=== PATIENT | male | born 1975 | race African-American/Black ===

== ENCOUNTER 2017-09-05 22:14 | Emergency (ER) | payer SELFPAY ==
--- NOTE | 2017-09-05 23:49 | RAD ---
LEFT HAND THREE VIEWS: 09/05/17 HISTORY: Injured hand at work. Arthritic changes of the first carpometacarpal joint space are seen. There is some deformity at the DIP joint of the little finger. There is no signs of any acute fracture or dislocation. IMPRESSION: No evidence of acute injury. POS: [facility]
[2017-09-06] MEDS ORDERED: Ibuprofen 800 MG TAB ONE (03:01)
== END 2017-09-06 03:03 | disposition home or self-care (01) ==
LOC: ERS 22:14
DX: S63.502A Unspecified sprain of left wrist, initial encounter (principal); M19.90 Unspecified osteoarthritis, unspecified site; E11.9 Type 2 diabetes mellitus without complications; I10 Essential (primary) hypertension; J45.909 Unspecified asthma, uncomplicated; F17.210 Nicotine dependence, cigarettes, uncomplicated; Z79.84 Long term (current) use of oral hypoglycemic drugs; Z79.899 Other long term (current) drug therapy; X50.1XXA Overexertion from prolonged static or awkward postures, initial encounter; Y99.0 Civilian activity done for income or pay